=== PATIENT | male | born 1955 | race Caucasian/White ===

== ENCOUNTER 2019-06-10 14:21 | Emergency (ER) | payer OTHER ==
[~2019-06-10] VITALS: Ht 170.2 cm; Wt 88.0 kg
[2019-06-10 14:26] VITALS: BP 130/93; Ht 170.2 cm; Wt 88.0 kg
== END 2019-06-10 18:57 | disposition home or self-care (01) ==
LOC: ED 14:21
DX: L03.115 Cellulitis of right lower limb (principal); I10 Essential (primary) hypertension
CPT/HCPCS: 82962; J0696; J1885

== ENCOUNTER 2019-06-28 14:40 | Emergency (ER) | payer OTHER ==
[~2019-06-28] VITALS: Ht 172.7 cm; Wt 89.4 kg
[2019-06-28 15:15] VITALS: Ht 172.7 cm; Wt 89.4 kg
[2019-06-28 17:15] VITALS: BP 158/99
== END 2019-06-28 17:15 | disposition home or self-care (01) ==
LOC: ED 14:40
DX: K40.90 Unilateral inguinal hernia, without obstruction or gangrene, not specified as recurrent (principal); I10 Essential (primary) hypertension
CPT/HCPCS: J1885

== ENCOUNTER 2019-07-19 15:06 | Emergency (ER) | payer OTHER ==
[~2019-07-19] VITALS: Ht 172.7 cm; Wt 87.5 kg
[2019-07-19 16:38] VITALS: BP 168/94
== END 2019-07-19 16:38 | disposition home or self-care (01) ==
LOC: ED 15:06
DX: L03.317 Cellulitis of buttock (principal); L02.31 Cutaneous abscess of buttock; I10 Essential (primary) hypertension
CPT/HCPCS: J2001